=== PATIENT | female | born 1955 | race Caucasian/White ===

== ENCOUNTER 2016-07-30 17:12 | Emergency (ER) | payer OTHER ==
[2016-07-30 17:51] LABS: COLOR PALE YELLOW; LEUKOCYTE ESTERASE,URINE NEGATIVE (NEGATIVE); NITRITE,URINE NEGATIVE (NEGATIVE)
[2016-07-30 17:57] LABS: MUCUS TRACE /lpf (NONE-1+)
[2016-07-30 17:58] LABS: WBC,URINE 0-1 /hpf (0-3)
[2016-07-30 18:23] LABS: % IMMATURE GRANULYOCYTES 0.4 % (0.0-1.1); ABSOLUTE IMMATURE GRANULOCYTES 0.03 10^3/uL (0.00-0.10); ADD DIFF? NO; ADD MORPH? NO; ADD SCAN? NO; ATYPICAL LYMPHOCYTE FLAG 0 (0-99); FRAGMENT RBC FLAG 0 (0-99); HEMATOCRIT 44.4 % (38.0-47.0); HEMOGLOBIN 14.8 g/dL (12.6-16.3); LEFT SHIFT FLG 0 (0-99); LIPEMIA HEMOLYSIS FLAG 80 (0-99); MEAN CELL HEMOGLOBIN 30.5 pg (27.9-34.1); MEAN CELL HEMOGLOBIN CONCENTR. 33.3 g/dL (32.4-36.7); MEAN CELL VOLUME 91.5 fL (81.5-99.8); MEAN PLATELET VOLUME 10.6 fL (8.7-11.7); PLATELET CLUMPS FLAG 20 (0-99); PLATELET COUNT 304 10^3/uL (150-400); RED BLOOD CELL COUNT 4.85 10^6/uL (4.18-5.33); RED CELL DISTRIBUTION WIDTH 12.5 % (11.5-15.2)
--- NOTE | 2016-07-30 18:30 | EDPHY ---
H & P Stated Complaint: abd pain, possible prolapsed bladder, has appointment with OB Time Seen by Provider: 07/30/16 17:33 HPI/ROS: CHIEF COMPLAINT: abdominal Pain HISTORY OF PRESENT ILLNESS: 60-year-old female presents emergency department complaining of lower abdominal pain for the past 4 days. Patient states she has a prolapsed bladder that she has had for the past month, she saw her primary care doctor mini who has referred her to an OBGYN. Patient has an appointment in 10 days to see this doctor. Patient reports she has been pushing in her bladder twice daily. She denies urinary frequency, urgency or dysuria. No blood in her urine. Patient states she feels bloated with a deep abdominal ache. Mild intermittent nausea, no vomiting, no diarrhea. REVIEW OF SYSTEMS: A comprehensive 10 point review of systems is otherwise negative aside from elements mentioned in the history of present illness. Source: Patient Exam Limitations: No limitations - Personal History Current Tetanus/Diphtheria Vaccine: Yes Current Tetanus Diphtheria and Acellular Pertussis (TDAP): Yes Tetanus Vaccine Date: WITHIN 10 YRS - Medical/Surgical History Hx Asthma: Yes Hx Chronic Respiratory Disease: No Hx Diabetes: Yes Hx Cardiac Disease: No Hx Renal Disease: No Hx Cirrhosis: No Hx Alcoholism: No Hx HIV/AIDS: No Hx Splenectomy or Spleen Trauma: No Other PMH: pneumonia 1-2 times a year, diabetes, hypertension,depression, ortho surgeries - Social History Smoking Status: Former smoker - Physical Exam Exam: Physical Exam Gen: Alert and Oriented, NAD HEENT: PERRL, moist mucous membranes NECK: no meningismus CV: regular rate and regular rhythm PULM: CTAB, no wheezes ABDOMEN: Obese, soft, right and left lower quadrant tendeness to palpation with guarding, BS present : Patient with what I suspect is a protruded bladder at her vaginal entrance BACK: No CVA tenderness NEURO: Neurologically grossly intact EXTREMITIES: normal appearing SKIN: no rash or break in skin on exposed skin PSYCH: answers questions appropriately. Constitutional: Initial Vital Signs Temperature (C) 36.7 C 07/30/16 17:18 Heart Rate 78 07/30/16 17:18 Respiratory Rate 18 07/30/16 17:18 Blood Pressure 145/69 H 07/30/16 17:18 O2 Sat (%) 96 07/30/16 17:18 O2 Delivery Mode Room Air Allergies/Adverse Reactions: pamabrom [From Midol] Allergy (Verified 07/30/16 17:16) pyrilamine maleate [From Midol] Allergy (Verified 07/30/16 17:16) Sulfa (Sulfonamide Antibiotics) Allergy (Verified 07/30/16 17:16) Home Medications: Medication Instructions Recorded Metformin HCl [Metformin Hcl Er] mg PO 11/20/10 Albuterol Sulfate [Albuterol 1 - 2 puffs IH Q4H PRN #1 mdi 03/20/15 Inhaler Hfa] Fluticasone Hfa 110 Mcg [Flovent 1 puffs IH BID 7 Days 03/20/15 Hfa] traZODONE 03/20/15 Cymbalta 04/10/16 VITAMIN D 04/10/16 Medical Decision Making ED Course/Re-evaluation: IV established, CBC, chemistry panel, urinalysis obtained, CT abdomen pelvis ordered due to tenderness on palpation in patient's lower quadrants of her abdomen. CBC is unremarkable, chemistry panel shows an elevated blood sugar in the 300' s. Patient reports it was around 170 earlier today. Patient agrees to continue to check her blood sugars and follow up with her primary care doctor for continued elevated blood sugars. She was given 1 L of normal saline after her CT scan with IV contrast. CT scan is unremarkable. I think likely the patient's aching in her lower abdomen is from her prolapsed bladder. This was easily pushed back into place manually. Patient reports it comes out multiple times a day. She is urinating without difficulty, urinalysis shows no signs of infection. She will be discharged home, she has an appointment with an OBGYN in 10 days, I have given her the name of the OBGYN on-call who may be able to get her in sooner. Patient is given return precautions for worsening symptoms, fevers, vomiting. Differential Diagnosis: Diagnosis considered but not limited to diverticulitis, urinary tract infection , pyelonephritis, prolapsed bladder, constipation - Data Points Laboratory Results: Laboratory Results 07/30/16 17:40 07/30/16 17:40 07/30/16 07/30/16 17:40 17:25 WBC 8.44 10^3/uL (3.80-9.50) RBC 4.85 10^6/uL (4.18-5.33) Hgb 14.8 g/dL (12.6-16.3) Hct 44.4 % (38.0-47.0) MCV 91.5 fL (81.5-99.8) MCH 30.5 pg (27.9-34.1) MCHC 33.3 g/dL (32.4-36.7) RDW 12.5 % (11.5-15.2) Plt Count 304 10^3/uL (150-400) MPV 10.6 fL (8.7-11.7) Neut % (Auto) 56.1 % (39.3-74.2) Lymph % (Auto) 32.7 % (15.0-45.0) Swisher % (Auto) 8.4 % (4.5-13.0) Eos % (Auto) 1.7 % (0.6-7.6) Baso % (Auto) 0.7 % (0.3-1.7) Nucleat RBC Rel Count 0.0 % (0.0-0.2) Absolute Neuts (auto) 4.74 10^3/uL (1.70-6.50) Absolute Lymphs (auto) 2.76 10^3/uL (1.00-3.00) Absolute Monos (auto) 0.71 10^3/uL (0.30-0.80) Absolute Eos (auto) 0.14 10^3/uL (0.03-0.40) Absolute Basos (auto) 0.06 10^3/uL (0.02-0.10) Absolute Nucleated RBC 0.00 10^3/uL (0-0.01) Immature Gran % 0.4 % (0.0-1.1) Immature Gran # 0.03 10^3/uL (0.00-0.10) Sodium 140 mEq/L (134-144) Potassium 4.6 mEq/L (3.5-5.2) Chloride 103 mEq/L (97-110) Carbon Dioxide 24 mEq/l (22-31) Anion Gap 13 mEq/L (8-16) BUN 15 mg/dL (7-23) Creatinine 0.5 L mg/dL (0.6-1.0) Estimated GFR > 60 Glucose 336 H mg/dL (70-100) Calcium 9.4 mg/dL (8.5-10.4) Urine Color PALE YELLOW Urine Appearance CLEAR Urine pH 7.0 (5.0-7.5) Ur Specific Champion 1.024 (1.002-1.030) Urine Protein NEGATIVE (NEGATIVE) Urine Ketones TRACE H (NEGATIVE) Urine Blood NEGATIVE (NEGATIVE) Urine Nitrate NEGATIVE (NEGATIVE) Urine Bilirubin NEGATIVE (NEGATIVE) Urine Urobilinogen NEGATIVE EU (0.2-1.0) Ur Leukocyte Esterase NEGATIVE (NEGATIVE) Urine RBC 1-3 /hpf (0-3) Urine WBC 0-1 /hpf (0-3) Ur Epithelial Cells NONE SEEN /lpf (NONE-1+) Urine Mucus TRACE /lpf (NONE-1+) Ur Culture Indicated? NOT INDICATED (NI) Urine Glucose 3+ H (NEGATIVE) Medications Given: Discontinued Medications Sodium Chloride (Ns) 1,000 mls @ 0 mls/hr IV ONCE ONE PRN Reason: Wide Open Stop: 07/30/16 18:52 Last Admin: 07/30/16 19:10 Dose: 1,000 mls Departure - Departure Disposition: Home, Routine, Self-Care Clinical Impression: Female bladder prolapse Condition: Good Instructions: Uterine Prolapse (ED) Additional Instructions: The instructions given here are for the uterus, we realize it is the bladder that is prolapsing. Continue putting it back in as needed. Follow-up with your OBGYN as scheduled. Return to the emergency department for fevers, vomiting, unable to urinate, new symptoms or concerns. Your blood sugar is elevated today. Continue to check this regularly and follow up with the primary care doctor if it continues elevated. Drink plenty of fluids, do not start your metformin until Sunday. Referrals: Micheline Tejada DO [Doctor of Osteopathy] - As per Instructions (OBGYN medical information specialist)
[2016-07-30 18:31] LABS: ANION GAP 13 mEq/L (8-16); CALCIUM 9.4 mg/dL (8.5-10.4); CARBON DIOXIDE 24 mEq/l (22-31); CHLORIDE 103 mEq/L (97-110); CREATININE 0.5 mg/dL (0.6-1.0); GLOMERULAR FILTRATION RATE > 60; GLUCOSE 336 mg/dL (70-100); POTASSIUM 4.6 mEq/L (3.5-5.2); SODIUM 140 mEq/L (134-144)
[2016-07-30] MEDS ORDERED: NS 1,000 ML IV ONE (18:51)
[2016-07-30] MEDS ORDERED: IOPAMIDOL (ISOVUE-300) 100 ML BTL IV ONE (18:54)
[2016-07-30 19:15] VITALS: RESP 20
[2016-07-30 19:59] VITALS: BP 130/73; PULSE 85; TEMP 98.6; O2SAT 94
--- NOTE | 2016-07-30 20:00 | CT ---
CT Scan of the Abdomen and Pelvis (With Contrast) July 30, 2016 at 1903 Hours History: Worsening lower abdominal pain. Prolapsed bladder. Comparison: None. Technique: Axial computed tomographic images of the abdomen and pelvis were obtained with the unevent ful intravenous administration of 99 mL Isovue-300 contrast. No oral or rectal contrast which limits the study. Dose reduction techniques were utilized. CT Abdomen Findings: Lung bases: No pleural effusion.. Liver: Normal. Biliary system: No obstruction. Spleen: Normal. Pancreas: Normal. Adrenals: Normal. Kidneys: No obstruction or solid masses.. Abdominal aorta: Mild atherosclerotic aorta and iliac arteries without aneurysm. No bowel obstruction, ascites, or significant retroperitoneal lymphadenopathy. CT Pelvis Findings: A few sigmoid diverticula without diverticulitis. Appendix and uterus are surgica lly absent. No pelvic fluid collections. On the sagittal views, there is a suggestion of mild bladder prolapse. However, no urinary tract obstruction. Moderate degenerative disk disease lumbar spine at L5-S1. Impression: 1. Bladder prolapse without urinary tract obstruction. 2. Previous appendectomy and hysterectomy without pelvic fluid collections or significant adenopathy. 3. Atherosclerotic aorta without aneurysm. Findings and recommendations discussed with emergency department, Jessica Chase NP at 1931 hours o n July 30, 2016. Final report concurs with initial preliminary interpretation.
== END 2016-07-30 19:59 | disposition home or self-care (01) ==
DX: N81.10 Cystocele, unspecified (principal); J45.909 Unspecified asthma, uncomplicated; E11.9 Type 2 diabetes mellitus without complications; I10 Essential (primary) hypertension; Z87.891 Personal history of nicotine dependence
CPT/HCPCS: Q9967

== ENCOUNTER → 2016-08-09 | Outpatient (CLI) | payer OTHER | LOC: CIMAGING 11:00 | PROVIDERS: ATTEND Family Medicine | DX: M25.862 Other specified joint disorders, left knee (principal); E11.9 Type 2 diabetes mellitus without complications; E55.9 Vitamin D deficiency, unspecified; E66.9 Obesity, unspecified | CPT/HCPCS: 73562-PO ==

== ENCOUNTER 2016-10-09 09:49 | Day surgery (SDC) | payer OTHER ==
--- NOTE | 2016-10-08 15:16 | GHP ---
[f rep st] PREOP HISTORY AND PHYSICAL DATE OF ADMISSION: 10/09/2016 DATE OF PLANNED PROCEDURE: 10/09/2016 PREOPERATIVE DIAGNOSIS: Full-thickness rotator cuff tear, left. HPI: Rosa is a 60-year-old female with a left shoulder injury, failed conservative management. MR Dusty showed a full-thickness rotator cuff tear. She has undergone a right rotator cuff repair; has don e well with that. Decision was made to proceed with a left rotator cuff repair. PRIOR MEDICAL HISTORY: Arthritis, asthma, depression, diabetes, high cholesterol, migraines, osteop orosis, sleep apnea. SURGICAL HISTORY: Right shoulder rotator cuff repair, , bunionectomy. MEDICATIONS: Cymbalta, atorvastatin, Januvia, lisinopril, metformin. ALLERGIES: Sulfa gives her anaphylactic shock. REVIEW OF SYSTEMS: No shortness of breath, or chest pain. Otherwise, review of systems is unremark able. PHYSICAL EXAM: GENERAL: 60-year-old female. She is 5 feet 5 inches tall, weighs 230 pounds. JOSE A L SIGNS: Blood pressure is 150/94, heart rate 85, respiratory rate is 18 on room air. HEENT: Norm ocephalic, atraumatic. Extraocular muscles are intact. NECK: Supple. There is no lymphadenopathy . No JVD. CHEST: Clear to auscultation. CARDIOVASCULAR: Regular rate and rhythm. ABDOMEN: Sof t, nontender, nondistended. PHYSICAL EXAM FOCUSING ON THE LEFT SHOULDER: No obvious atrophy in the supraspinatus or infraspinat us fossa. Active range of motion of the shoulder. She does substitute with upper trapezius, but sh e can get the shoulder elevated to about 160 degrees, past that and then get it almost to 180 degree s, external rotation to 60 degrees. Actively passively to almost 90. Internal rotation: She can g et her thumb to L1. Rotator cuff strength supraspinatus is 3/5. Infraspinatus 4- out of 5. Subsca pularis 4/5. Tender at the rotator interval as well as along the long head of the biceps. IMAGING STUDIES: The MRI is reviewed from [facility] dated July 28, 2016. I t shows a full-thickness tear of the supraspinatus with retraction. No full-thickness tear of the i nfraspinatus. There is advanced long head of the biceps tenosynovitis with tearing and its perched upon the bicipital tubercle. There is a posterior superior glenoid labral tear, moderate to severe AC joint arthropathy. ASSESSMENT: Full-thickness rotator cuff tear. PLAN: Rosa and I reviewed the MRI findings as well as her clinical course. She has really not imp roved with conservative management. I recommend proceeding with a rotator cuff repair, possible bic eps tendon tenodesis. The risks and the benefits of the surgery including continued pain, weakness postoperatively were all discussed. She understands these risks and wishes to proceed. We will lori n on surgery SundayOctober 09 at [facility]. /[id number]/MODL
[2016-10-09] MEDS ORDERED: BUPIVACAINE/EPI 0.5% 30 ML SDV ONE (10:16)
[2016-10-09] MEDS ORDERED: CALCIUM CHLORIDE 1 GM/10 ML INJ ONE (10:16)
[2016-10-09] MEDS ORDERED: THROMBIN (BOVINE) 5,000 UNIT VIAL TP ONE (10:16)
[2016-10-09] MEDS ORDERED: EPINEPHrine 30 MG/30 ML MDV ONE (10:17)
[2016-10-09] MEDS ORDERED: LIDO/EPI 1% **for epidural** 30 ML SDV ONE (10:17)
--- NOTE | 2016-10-09 10:59 | CPEKG ---
Heart Rate: 83 RR Interval: 723 QRSD Interval: 102 QT Interval: 404 QTC Interval: 475 QRS Orange: 63 T Wave Orange: -28 EKG Severity - ABNORMAL ECG - EKG Impression: PROBABLY NORMAL SINUS RHYTHM EKG Impression: BORDERLINE T ABNORMALITIES, INFERIOR LEADS Electronically Signed By: Abad Bejarano 10-Oct-2016 06:37:02
[2016-10-09] MEDS ORDERED: CHLORHEXIDINE GLUC HIBICLENS 118 ML BTL TP ONE (11:00)
[2016-10-09] MEDS ORDERED: ceFAZolin 2 GM/DEXTROSE 100 ML IV ONE (11:00)
[2016-10-09] MEDS ORDERED: MIDAZOLAM 2 MG/2 ML VIAL ONE (11:01)
[2016-10-09] MEDS ORDERED: CITRIC ACID/SODIUM CITRATE 30 ML UDCUP ONE (11:01)
[2016-10-09] MEDS ORDERED: fentaNYL 250 MCG/5 ML INJ ONE (11:06)
[2016-10-09 11:13] LABS: ANION GAP 8 mEq/L (8-16); CALCIUM 9.2 mg/dL (8.5-10.4); CARBON DIOXIDE 24 mEq/l (22-31); CHLORIDE 106 mEq/L (97-110); CREATININE 0.4 mg/dL (0.6-1.0); GLOMERULAR FILTRATION RATE > 60; GLUCOSE 252 mg/dL (70-100); POTASSIUM 4.5 mEq/L (3.5-5.2); SODIUM 138 mEq/L (134-144)
[2016-10-09] MEDS ORDERED: METOCLOPRAMIDE 10 MG/2 ML VIAL ONE (12:05)
[2016-10-09] MEDS ORDERED: ONDANSETRON 4 MG/2 ML VIAL ONE (12:05)
[2016-10-09] MEDS ORDERED: SUCCINYLCHOLINE CHLORIDE*ANESTHESIA ONLY*200 MG/10 ML SYR IVP ONE (12:05)
[2016-10-09] MEDS ORDERED: ROCURONIUM 50 MG/5 ML VIAL ONE (12:06)
[2016-10-09] MEDS ORDERED: LR 1,000 ML IV ONE (12:09)
[2016-10-09] MEDS ORDERED: INSULIN REGULAR HUMAN 100 UNIT/ML ONE (13:19)
--- NOTE | 2016-10-09 14:18 | GOP ---
[f rep st] OPERATIVE REPORT DATE OF OPERATION: 10/09/2016 SURGEON: Amari Limon MD ECONOMIC RESEARCH ASSISTANT: LOVE Harris. ANESTHESIA: General. ANESTHESIOLOGIST: Dr. Figueroa. PREOPERATIVE DIAGNOSIS: Rotator cuff tear, left shoulder. POSTOPERATIVE DIAGNOSIS: Rotator cuff tear, left shoulder. PROCEDURE PERFORMED: 1. Arthroscopic rotator cuff repair. 2. Labral debridement. 3. Biceps tenotomy. 4. Subacromial decompression. FINDINGS: ESTIMATED BLOOD LOSS: Minimal. INDICATIONS: The patient is a 60-year-old female with a left shoulder injury that failed conservati ve management. MRI showed a full-thickness rotator cuff tear. Decision was made to proceed with a rotator cuff repair. DESCRIPTION OF PROCEDURE: After appropriate informed consent was obtained, patient was taken to the operating room, placed supine on the operating table. Time-out was performed. Patient was identif ied. Correct site was identified. She received 2 g of Ancef preoperatively. Following the inducti on of general endotracheal tube anesthesia, she was positioned in the beach chair position with all bony prominences well padded. Left upper extremity was prepped and draped in the usual sterile fash ion. I instilled 30 mL of 1% lidocaine with epinephrine, 30 mL of normal saline through the standar d posterior portal. I introduced the camera through the standard posterior portal and then obtained an anterior portal under direct visualization. She had extensive degenerative fraying of the anter ior and superior labrum. Biceps tendon was, for the most part, torn off. There were a few fibers r emaining. I debrided the stump of the tendon off with the motorized shaver. I also debrided the la harper. There was an area of near full-thickness cartilage loss, 5 mm x 3 mm, on the anterior rim of the glenoid. There was also diffuse cartilage thinning throughout the humeral head, grade 2. I rep ositioned the camera in the subacromial space. I obtained a standard anterolateral portal under dir ect visualization, placed an 8 mm cannula through it as a working portal. We debrided the bursa and synovium from the subacromial space. She had a tear of the supraspinatus extending just back to th e edge of the infraspinatus. The edge of the torn cuff was freshened. I then obtained a standard p osterolateral portal under direct visualization and moved the camera there for better visualization. We then roughened up our footprint with the motorized bur, placed 2 medial anchors, and pulled the limbs out anteriorly. We then passed our suture with a scorpion passing device and shelli-crossed t he limbs, pulled them out the lateral side, and placed 2 lateral row anchors after we punched our ho les, securely fixing the rotator cuff back to the footprint. Suture ends were trimmed. I then perf ormed a subacromial decompression with the motorized bur. Incisions were then withdrawn. Portal in cisions were closed with 2-0 Vicryl and 3-0 nylon. I put PRP at the rotator cuff repair site, 6 mL, and I put 30 mL of 0.5% Marcaine with epinephrine into the shoulder joint. A sterile dressing was applied. A shoulder sling and abduction pillow were applied. Patient was awakened from anesthesia, taken to the recovery room in satisfactory condition. No intraoperative complications. Tuan Hamilton ' assistance was required throughout the entirety of the case. COMPLICATIONS: None. DRAINS: None. IMPLANTS USED: Arthrex 4.5 mm SwiveLock anchors x4. COMPLICATIONS: None. DRAINS: None. /[id number]/MODL
[2016-10-09] MEDS ORDERED: fentaNYL 100 MCG/2 ML INJ ONE (14:29)
[2016-10-09] MEDS ORDERED: INSULIN REGULAR HUMAN 100 UNIT/ML SC ONE (14:30)
== END 2016-10-09 15:30 | disposition home or self-care (01) ==
LOC: FSGY 09:49
PROVIDERS: ATTEND Orthopaedic Surgery
PROC: 0LQ24ZZ Repair Left Shoulder Tendon, Percutaneous Endoscopic Approach (ICD-10-PCS; principal; 2016-10-09 11:00)
PROC: 0LS24ZZ Reposition Left Shoulder Tendon, Percutaneous Endoscopic Approach (ICD-10-PCS; principal; 2016-10-09 11:00)
PROC: 0RQK4ZZ Repair Left Shoulder Joint, Percutaneous Endoscopic Approach (ICD-10-PCS; principal; 2016-10-09 11:00)
PROC: 0RNH4ZZ Release Left Acromioclavicular Joint, Percutaneous Endoscopic Approach (ICD-10-PCS; principal; 2016-10-09 11:00)
DX: S46.012A Strain of muscle(s) and tendon(s) of the rotator cuff of left shoulder, initial encounter (principal); S43.432A Superior glenoid labrum lesion of left shoulder, initial encounter; M75.22 Bicipital tendinitis, left shoulder; M81.0 Age-related osteoporosis without current pathological fracture; I10 Essential (primary) hypertension; E11.9 Type 2 diabetes mellitus without complications; E78.00 Pure hypercholesterolemia, unspecified; X58.XXXA Exposure to other specified factors, initial encounter
CPT/HCPCS: C1713; J0330; J0690; J1815; J2250; J2405; J2765; J3010

== ENCOUNTER 2016-12-31 13:58 | Emergency (ER) | payer OTHER ==
[2016-12-31 14:07] VITALS: PULSE 87; TEMP 98.6
[2016-12-31] MEDS ORDERED: OXYCODONE/APAP 5/325 TAB PO ONE (15:34)
--- NOTE | 2016-12-31 15:35 | EDPHY ---
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 This happened less than 2 hours prior to arrival. No loss of conscious. Minimal headache. No visual changes. No nausea or vomiting. No neck pain or injury. No confusion or difficulty with thought process per . She also complains of a mild left knee pain that she twisted when she fell. She has no injuries elsewhere. She has no modifying factors for the laceration. The bleeding was stopped with pressure. The left knee is worse when she walks or bends it. No numbness or tingling. No radiating pain from the knee. No back or chest injury. No numbness or tingling in any extremities. No other associated complaints or modifying factors. REVIEW OF SYSTEMS: Ten systems reviewed and are negative unless otherwise noted in the HPI PAST MEDICAL HISTORY: Diabetes, arthritis, knee pain SOCIAL HISTORY: Nonsmoker. Lives here in [place] FAMILY HISTORY: Noncontributory EXAMINATION General Appearance: Alert, no distress Head: normocephalic. There is laceration on the right side of the forehead that is jagged and irregular in shape. There is some avulsion. There is no foreign body. No Galdamez sign. No raccoon eyes. No depression. Eyes: Pupils equal and round, no conjunctival pallor or injection. EOMs intact. ENT, Mouth: Mucous membranes moist. Uvula midline. Neck: Normal inspection, supple, non-tender Respiratory: Lungs are clear to auscultation Cardiovascular: Regular rate and rhythm. No murmur. Pulses intact distally per Gastrointestinal: Abdomen is soft and nontender Back: non-tender, no bony abnormalities Neurological: GCS 15. Cranial nerves 2-12 grossly intact A&O, nonfocal, normal gait Skin: Warm and dry. 4 cm, jagged laceration on the right forehead. There is exposure of the gala but no compromise or laceration of the galea. There is no foreign body. Mild surrounding abrasion. Extremities: Mild tenderness to palpation of the left knee. Flexion extension are intact without any deficits. Strength is symmetric to the right. There is no tenderness of the remaining musculoskeletal exam. Psychiatric: Mood and affect normal DIFFERENTIAL DIAGNOSES: Including but not limited to closed head injury, laceration, complex laceration , sprain knee, patellar fracture, femur fracture, fibula fracture, tibia fracture MDM: 2:34 p.m. Mechanical fall with forehead laceration. This is closed head injury without any evidence of basilar skull fracture. Based on Tyrrell CT head rules, there is no indication for CT scan at this time. I have anesthetize the wound. We will proceed with irrigation closure. She does have some left knee pain, and I will obtain an x-ray of this. 3:40 p.m. Forehead laceration without complication. This was a jagged laceration with some avulsion. I did perform minimal excisional debridement and close the wound without complication. Wound care discussed. X-ray of the knee is pending at this time. 4:15 p.m. X-ray has been read as no acute findings. There are degenerative changes as previously known. She has ambulated here in the emergency department without assistance and without complication. Discharged home with routine wound care, follow up with primary care physician, suture removal in 5-7 days, orthopedic follow up with established physician regarding the knee pain. She is comfortable this plan and discharged home stable condition. PROCEDURE: Laceration repair Consent: Verbal Location: Forehead, right-sided Length of repair: 4.25 cm Complexity: Complex Layer involvement: Single Anesthesia: Local, 1% lidocaine with epinephrine, 8 mL Irrigation: Extensive Debridement: Minimal Procedure description: Following good anesthesia, the wound was copiously irrigated. Wound bed was explored and there is no foreign body noted. There was exposure of the gala, but there was no laceration or compromise of the gala. Minimal excisional debridement. Wound borders were approximated well with good hemostasis. Tolerated well without complication. Suture/Staple material: 6-0 Prolene, 10 simple interrupted sutures Wound care: Routine as discussed Suture/Staple removal: 5-7 Days SUPERVISION: This patient was independently evaluated without direct examination by the attending physician. Case was discussed with attending physician. Source: Patient, Family Exam Limitations: No limitations - Personal History Current Tetanus Diphtheria and Acellular Pertussis (TDAP): Yes Tetanus Vaccine Date: WITHIN 10 YRS - Medical/Surgical History Hx Asthma: Yes Hx Chronic Respiratory Disease: No Hx Diabetes: Yes Hx Cardiac Disease: No Hx Renal Disease: No Hx Cirrhosis: No Hx Alcoholism: No Hx HIV/AIDS: No Hx Splenectomy or Spleen Trauma: No Other PMH: pneumonia 1-2 times a year, diabetes, hypertension,depression, ortho surgeries - Social History Smoking Status: Former smoker Constitutional: Initial Vital Signs Temperature (C) 98.6 F 12/31/16 14:00 Heart Rate 87 12/31/16 14:00 Respiratory Rate 18 12/31/16 14:00 Blood Pressure 170/91 H 12/31/16 14:00 O2 Sat (%) 92 12/31/16 14:00 O2 Delivery Mode Room Air Allergies/Adverse Reactions: Sulfa (Sulfonamide Antibiotics) Allergy (Severe, Verified 12/31/16 14:04) Anaphylaxis pyrilamine maleate [From Midol] Allergy (Mild, Verified 12/31/16 14:04) "shakes" pamabrom [From Midol] Allergy (Verified 12/31/16 14:04) Home Medications: Medication Instructions Recorded Metformin HCl [Metformin Hcl Er] mg PO 11/20/10 Albuterol Sulfate [Albuterol 1 - 2 puffs IH Q4H PRN #1 mdi 03/20/15 Inhaler Hfa] traZODONE 03/20/15 Cymbalta 04/10/16 Atorvastatin Calcium 10/06/16 Januvia 50 mg 10/06/16 Amoxicillin/Clavulanate Pot 875 mg PO BID #14 tab 12/31/16 [Augmentin 875 MG TAB (*)] Hydrocodone/Acetaminophen [[place] 1 each PO Q4-6PRN PRN #20 tablet 12/31/16 7.5-325 Tablet] Medical Decision Making - Diagnostics Imaging Results: Imaging Impressions Knee X-Ray 12/31/16 14:35 Impression: 1. No acute osseous abnormality seen left knee. 2. Stable degenerative changes medial left knee joint and patellofemoral joint. - Data Points Medications Given: Discontinued Medications Oxycodone/Acetaminophen (Percocet 5/325) 1 tab PO EDNOW ONE Stop: 12/31/16 15:35 Last Admin: 12/31/16 15:49 Dose: 1 tab Departure - Departure Disposition: Home, Routine, Self-Care Clinical Impression: Forehead laceration Qualifiers: Encounter type: initial encounter Qualified Code(s): S01.81XA - Laceration without foreign body of other part of head, initial encounter Left knee sprain Qualifiers: Encounter type: initial encounter Involved ligament of knee: unspecified ligament Qualified Code(s): S83.92XA - Sprain of unspecified site of left knee, initial encounter Closed head injury Qualifiers: Encounter type: initial encounter Qualified Code(s): S09.90XA - Unspecified injury of head, initial encounter Condition: Good Instructions: Head Injury (ED), Concussion (ED), Laceration (ED), Care For Your Stitches (ED) Additional Instructions: 1. Daily wound care as discussed 2. Prophylaxis of antibiotics as discussed 3. Pain medication as prescribed as needed 4. Follow up with primary care physician and Orthopedics for definitive care 5. Suture removal in 5-7 days Referrals: Shayla Moses MD [Primary Care Provider] - As per Instructions Amari Limon MD [Medical Doctor] - As per Instructions Prescriptions: Amoxicillin/Clavulanate Pot [Augmentin 875 MG TAB (*)] 875 mg PO BID #14 tab Hydrocodone/Acetaminophen [[place] 7.5-325 Tablet] 1 each PO Q4-6PRN PRN #20 tablet PRN Reason: Pain, Moderate
[2016-12-31 16:44] VITALS: BP 147/75; RESP 16; O2SAT 93
== END 2016-12-31 16:43 | disposition home or self-care (01) ==
PROC: 0HQ1XZZ Repair Face Skin, External Approach (ICD-10-PCS; principal; 2016-12-31)
DX: S01.81XA Laceration without foreign body of other part of head, initial encounter (principal); S83.92XA Sprain of unspecified site of left knee, initial encounter; E11.9 Type 2 diabetes mellitus without complications; J45.909 Unspecified asthma, uncomplicated; I10 Essential (primary) hypertension; Z87.891 Personal history of nicotine dependence; Z79.84 Long term (current) use of oral hypoglycemic drugs; W01.198A Fall on same level from slipping, tripping and stumbling with subsequent striking against other object, initial encounter

== ENCOUNTER 2017-02-16 08:14 | Day surgery (SDC) | payer OTHER ==
--- NOTE | 2017-02-15 15:36 | GHP ---
[f rep st] PREOP HISTORY AND PHYSICAL DATE OF ADMISSION: 02/16/2017 PREOPERATIVE DIAGNOSIS: Left knee medial meniscal tear and loose body. HPI: The patient is a 61-year-old female who injured her knee several months ago in a slip and fall . We had obtained an MRI at that time, which did show the meniscal tear and loose body. She had op martín for conservative treatment, which has failed to improve her symptoms. She continues to have mec hanical symptoms and catching in the knee. Decision has been made to proceed with a partial menisce ctomy and loose body removal from her knee. PAST MEDICAL HISTORY: Asthma, diabetes, high cholesterol, migraines, osteoporosis, sleep apnea and asthma. SURGICAL HISTORY: , rotator cuff repair, cervical fusion, bunionectomy. MEDICATIONS: Januvia, Cymbalta, atorvastatin, lisinopril, metformin, Ventolin inhaler. ALLERGIES: Sulfa antibiotics give her a rash and anaphylaxis. SOCIAL HISTORY: She is self-employed. Former smoker. Occasional alcohol use. REVIEW OF SYSTEMS: No shortness of breath or chest pain. Otherwise, review of systems unremarkable . PHYSICAL EXAM: VITAL SIGNS: She is 5 feet 5 inches tall, weighs 230 pounds. Blood pressure is 152 /88, heart rate is 86, respiratory rate 14 on room air. GENERAL: Alert and oriented x3. HEENT: N ormocephalic, atraumatic. Extraocular muscles intact. NECK: Supple. There is no lymphadenopathy. No JVD. CHEST: Clear to auscultation. CARDIOVASCULAR: Regular rate and rhythm. ABDOMEN: Soft , nontender, nondistended. EXTREMITIES: Focusing on the left knee, she does not have an effusion. She is tender on the medial joint line, as well as inferior pole of patella. On range of motion of the knee, she has full extension and a little over 100 degrees of flexion. Flexion beyond that rep roduces the medial joint line pain. The knee is stable to varus and valgus stress testing. 1+ Lach man with a firm endpoint. Negative posterior drawer. Calf is soft. She has 5/5 ankle dorsiflexion and plantarflexion strength. 2+ dorsalis pedis and posterior tibial pulses. IMAGING: MRI is reviewed from [facility] dated 09/15/2016, which shows a comple x tear of the medial meniscus, multiple loose bodies within the knee (2 measuring 9 mm across), grad e 2 and 3 chondral changes in the medial and lateral compartments, and grade 3-4 chondral loss in th e patellofemoral compartment. ASSESSMENT: Complex medial meniscal tear with multiple loose bodies. PLAN: We will proceed with a partial medial meniscectomy, Chondroplasty and loose body removal. Ri sks and benefits including infection, blood clots and continued knee pain were all discussed. She u nderstands these risks and wishes to proceed. Planned surgery on February 16 at the hospital. /[id number]/MODL
[2017-02-16] MEDS ORDERED: LR 1,000 ML IV ONE ×2 (08:22→08:45)
[2017-02-16] MEDS ORDERED: ceFAZolin 2 GM/DEXTROSE 100 ML IV ONE (08:26)
[2017-02-16] MEDS ORDERED: BUPIVACAINE/EPI 0.5% 30 ML SDV ONE (08:34)
[2017-02-16] MEDS ORDERED: LIDO/EPI 1% **for epidural** 30 ML SDV ONE (08:35)
--- NOTE | 2017-02-16 08:45 | PDHPUP ---
History & Physical Update H&P update statement: This history and physical update is based on an assessment of the patient which was completed after admission or registration (within 24 hours), but prior to the surgery/procedure. H&P update: H&P reviewed & patient examined, no change in patient's condition since H&P completed
[2017-02-16] MEDS ORDERED: MIDAZOLAM 2 MG/2 ML VIAL ONE (08:52)
[2017-02-16] MEDS ORDERED: fentaNYL 100 MCG/2 ML INJ ONE (08:52)
[2017-02-16] MEDS ORDERED: METOCLOPRAMIDE 10 MG/2 ML VIAL ONE (08:53)
[2017-02-16] MEDS ORDERED: PROPOFOL 200 MG/20 ML VIAL ONE (08:53)
[2017-02-16] MEDS ORDERED: ONDANSETRON 4 MG/2 ML VIAL ONE (08:53)
--- NOTE | 2017-02-16 09:45 | POSTOPPROG ---
Post Op Note Date of Operation: 02/16/17 Surgeon: Amari Limon Anesthesiologist: esther Anesthesia: GET(General Endotracheal) Pre-op Diagnosis: lt medial meniscus tear Post-op Diagnosis: same Procedure: 1. partial med menisectomy 2. loose body removal 3 PF chondro Inf/Abcess present in the surg proc area at time of surgery?: No EBL: Minimal Complications: none
[2017-02-16] MEDS ORDERED: PROMETHAZINE HCL 25 MG/ML INJ IVP PRN (09:48)
[2017-02-16] MEDS ORDERED: LR 500 ML IV PRN (09:48)
[2017-02-16] MEDS ORDERED: NALOXONE HCL 0.4 MG/ML INJ IVP PRN (09:48)
[2017-02-16] MEDS ORDERED: fentaNYL 100 MCG/2 ML INJ IVP PRN (09:48)
[2017-02-16] MEDS ORDERED: ALBUTEROL 3 ML DEYVIAL IH PRN (09:48)
--- NOTE | 2017-02-16 09:48 | PDANEPAE ---
ANE Past Medical History - Cardiovascular History Hx Hypertension: No Hx Arrhythmias: No Hx Chest Pain: No Hx Coronary Artery / Peripheral Vascular Disease: No Hx CHF / Valvular Disease: No Hx Palpitations: No - Pulmonary History Hx COPD: No Hx Asthma/Reactive Airway Disease: Yes Hx Recent Upper Respiratory Infection: No Hx Oxygen in Use at Home: No Hx Sleep Apnea: No Sleep Apnea Screening Result - Last Documented: Positive - Neurologic History Hx Cerebrovascular Accident: No Hx Seizures: No Hx Dementia: No - Endocrine History Hx Diabetes: Yes Endocrine History Comment: DM - Renal History Hx Renal Disorders: Yes Renal History Comment: PROLAPSE BLADDER - Liver History Hx Hepatic Disorders: No - Neurological & Psychiatric Hx Hx Neurological and Psychiatric Disorders: Yes Neurological / Psychiatric History Comment: DEPRESSION - Cancer History Hx Cancer: No - GI History Hx Gastrointestinal Disorders: No - Other Health History Other Health History: NONE - Chronic Pain History Chronic Pain: Yes (ARTHRITIS) - Surgical History Prior Surgeries: CERVICAL SURG. APPY, C SECTION, FOOT, CERVICAL SPINE 2014. ROTATOR CUFF R. C SECTION ANE Review of Systems - Exercise capacity METS (RN): 4 METS ANE Patient History - Allergies Allergies/Adverse Reactions: Sulfa (Sulfonamide Antibiotics) Allergy (Severe, Verified 12/31/16 14:04) Anaphylaxis pyrilamine maleate [From Midol] Allergy (Mild, Verified 12/31/16 14:04) "shakes" pamabrom [From Midol] Allergy (Verified 12/31/16 14:04) - Home Medications Home Medications: Metformin HCl [Metformin HCl ER] mg PO 11/20/10 [Last Taken 02/14/17] traZODONE 03/20/15 [Last Taken 02/15/17] Cymbalta 04/10/16 [Last Taken 02/15/17] Atorvastatin Calcium 10/06/16 [Last Taken 02/14/17] Januvia 50 mg 10/06/16 [Last Taken 02/14/17] Herbals/Supplements -Info Only 02/14/17 [Last Taken 02/13/17] - NPO status NPO Since - Liquids (Date): 02/15/17 NPO Since - Liquids (Time): 23:50 NPO Since - Solids (Date): 02/15/17 NPO Since - Solids (Time): 21:00 - Smoking Hx Smoking Status: Former smoker - Family Anes Hx Family Hx Anesthesia Complications: NONE ANE Labs/Vital Signs - Vital Signs Blood Pressure: 146/77 Heart Rate: 89 Respiratory Rate: 16 O2 Sat (%): 91 Height: 165.1 cm Weight: 109.769 kg ANE Physical Exam - Airway Neck exam: decreased ROM Mallampati Score: Class 2 - ASA Status ASA Status: II ANE Anesthesia Plan Anesthesia Plan: GA w LMA
--- NOTE | 2017-02-16 09:50 | POSTANESTH ---
Post Anesthetic Evaluation Cardiovascular Status: Normal, Stable Respiratory Status: Normal, Stable Level of Consciousness/Mental Status: Can Participate in Eval Pain Control: Adequate, Prn Tx Ordered Nausea/Vomiting Control: Adequate, Prn Tx Ordered Complications Possibly Related to Anesthesia: None Noted
[2017-02-16 10:10] VITALS: TEMP 97.5
[2017-02-16 10:30] VITALS: O2SAT 97
--- NOTE | 2017-02-16 10:44 | GOP ---
[f rep st] OPERATIVE REPORT DATE OF OPERATION: 02/16/2017 SURGEON: Amari Limon MD ANESTHESIA: General. ANESTHESIOLOGIST: Hever Quiles MD PREOPERATIVE DIAGNOSIS: Medial meniscal tear. POSTOPERATIVE DIAGNOSIS: Medial meniscal tear. PROCEDURE PERFORMED: 1. Arthroscopic partial medial meniscectomy. 2. Patellofemoral chondroplasty. 3. Loose body removal. FINDINGS: ESTIMATED BLOOD LOSS: Minimal. DESCRIPTION OF PROCEDURE: After appropriate informed consent was obtained, patient was taken to the operating room and placed supine on the operating table. Time-out was performed; patient was ident ified and correct site was identified. She received 2 g Ancef preoperatively. Following the induct ion of general endotracheal tube anesthesia and with all bony prominences well padded, left lower ex tremity was prepped and draped in the usual sterile fashion. Right lower extremity was placed in a well-padded well leg hendrix. I instilled 5 mL 1% lidocaine with epinephrine for both anteromedial a nd anterolateral portals. Made a small pita incision and introduced the camera through a the ariane lateral portal. Patellofemoral joint was inspected. There were grade 3 and 4 changes in the trochl ear groove. Medial gutter showed 1 loose body, about 9 mm across. The lateral gutter was free of d ebris. I repositioned the camera and obtained a standard anteromedial portal under direct visualiza tion. She had a complex tear in the body and horn of the medial meniscus. There were areas of full -thickness cartilage loss on the weightbearing aspect of the femoral condyle and grade 2 changes on the tibial plateau. Using a biter and a shaver, I debrided back the medial meniscal tear to a stabl e smooth rim of tissue. Looking through the notch, ACL and PCL were both stable and intact. Latera l meniscus had 1 loose body, about 6 mm across. Otherwise, the lateral joint space was well maintai nils. The meniscus was without injury. I removed that lateral loose body. I then repositioned the camera in the patellofemoral compartment and removed the loose body from the medial gutter with the grabber and performed a patellofemoral chondroplasty. Instruments were withdrawn. Portal incisions were closed with 3-0 nylon. I instilled 30 mL 0.5% Marcaine with epinephrine into the knee joint. Soft sterile dressing was applied. The patient was awakened from anesthesia and taken recovery nohemi m in satisfactory condition. There were no immediate intraoperative complications. COMPLICATIONS: None. DRAINS: None. HISTORY: The patient is a 61-year-old female, who has had long-standing medial meniscal tear for last several months after a fall. We tried to manage this conservatively; however, she continued to have pain. Decision was made to proceed with a partial meniscectomy and loose body removal. /[id number]/MODL
[2017-02-16 11:19] VITALS: BP 142/76; PULSE 84; RESP 16
== END 2017-02-16 11:15 | disposition home or self-care (01) ==
LOC: FSGY 08:14
PROVIDERS: ATTEND Orthopaedic Surgery
DX: S83.242A Other tear of medial meniscus, current injury, left knee, initial encounter (principal); M23.42 Loose body in knee, left knee; E11.9 Type 2 diabetes mellitus without complications; M81.0 Age-related osteoporosis without current pathological fracture; G47.30 Sleep apnea, unspecified; J45.909 Unspecified asthma, uncomplicated; Z98.1 Arthrodesis status; W01.0XXA Fall on same level from slipping, tripping and stumbling without subsequent striking against object, initial encounter
CPT/HCPCS: J0690; J2250; J2405; J2704; J2765; J3010

== ENCOUNTER 2017-04-06 15:34 | Emergency (ER) | payer OTHER ==
[2017-04-06 15:42] VITALS: PULSE 95; RESP 20; TEMP 98.4
[2017-04-06 15:50] VITALS: O2SAT 93
[2017-04-06 15:58] VITALS: BP 150/82
--- NOTE | 2017-04-06 16:45 | EDPHY ---
H & P Time Seen by Provider: 04/06/17 15:53 HPI/ROS: This patient complains of vaginal itching and burning similar to prior episodes of Alessandra vulvovaginitis. She tried [id number]-[id number] Monistat without improvement her symptoms color primary care physician's office for evaluation today but was unable to be evaluated implants leaf time tomorrow so came to the emergency department for evaluation of her symptoms. She drove herself here by private vehicle. She reports the symptoms are mild to moderate. ROS: Constitutional: No fevers. No fatigue. : No dysuria. No significant vaginal discharge. Integumentary: No skin lesions elsewhere. 5 point ROS is otherwise negative Past Medical/Surgical History: No history of STDs. Has been sexual active for years. Insulin-dependent diabetes Smoking Status: Former smoker Physical Exam: Physical Exam Vital signs are normal. General: No acute distress Eyes: Pupils equal and react to light. Extraocular motions are intact. Lungs: No respiratory distress. Cardiac: Brisk capillary refill is intact throughout. Skin: No rash or pallor. Abdomen: Soft, nontender Pelvic: Patient has erythema of the labia majora and no associated warmth to touch. There is slight swelling. The erythema extends labia minora. There is small amount of discharge verses Monistat. On speculum exam trace amount of vaginal discharge again versus Monistat. Cervix appears healthy. A 1 swab is obtained, culture and chlamydia/GC. Neuro: Alert with no sensorimotor deficits. Initial differential diagnosis: Candidal vulval vaginosis, bacterial vaginosis , doubt chlamydia or GC Constitutional: Initial Vital Signs Temperature (C) 36.9 C 04/06/17 15:39 Heart Rate 95 04/06/17 15:39 Respiratory Rate 20 04/06/17 15:39 Blood Pressure 150/82 H 04/06/17 15:39 O2 Sat (%) 93 04/06/17 15:39 O2 Delivery Mode Room Air Allergies/Adverse Reactions: Sulfa (Sulfonamide Antibiotics) Allergy (Severe, Verified 04/06/17 15:42) Anaphylaxis pyrilamine maleate [From Midol] Allergy (Mild, Verified 04/06/17 15:42) "shakes" pamabrom [From Midol] Allergy (Verified 04/06/17 15:42) Home Medications: Medication Instructions Recorded Metformin HCl [Metformin HCl ER] mg PO 11/20/10 Cymbalta 04/10/16 Atorvastatin Calcium 10/06/16 Herbals/Supplements -Info Only 02/14/17 Clotrimazole [Gyne-Lotrimin] 22.2 gm VG DAILY #5 cream.appl 04/06/17 Fluconazole [Diflucan] 200 mg PO ONCE #2 tablet 04/06/17 Insulin NPH Human 04/06/17 Insulin Regular Human 04/06/17 MDM/Departure - [facility] ED Course/Re-evaluation: I will treat this patient with Diflucan orally as well as Gyne- Lotrimin I counseled regarding candidal vulval vaginosis. - Depart Disposition: Home, Routine, Self-Care Clinical Impression: Candidal vulvovaginitis Condition: Good Instructions: Vulvovaginal Candidiasis (ED) Additional Instructions: Diagnosis: Candidal vulvovaginitis Plan: Diflucan tab once Gyne- Lotrimin applied by applicator once daily for 5 days Follow up with your primary care physician or OBGYN for any ongoing symptoms despite the treatment plan Prescriptions: Clotrimazole [Gyne-Lotrimin] 22.2 gm VG DAILY #5 cream.appl Fluconazole [Diflucan] 200 mg PO ONCE #2 tablet Referrals: hSayla Moses MD [Primary Care Provider] - As per Instructions
== END 2017-04-06 16:49 | disposition home or self-care (01) ==
LOC: CED 15:34
DX: B37.3 Candidiasis of vulva and vagina (principal); E11.9 Type 2 diabetes mellitus without complications; Z79.84 Long term (current) use of oral hypoglycemic drugs; Z79.4 Long term (current) use of insulin; Z87.891 Personal history of nicotine dependence

== ENCOUNTER → 2018-02-02 | Outpatient (CLI) | payer OTHER | LOC: FIMAGING 12:31 | PROVIDERS: ATTEND Neurological Surgery | DX: M79.601 Pain in right arm (principal); M54.12 Radiculopathy, cervical region; Z98.1 Arthrodesis status ==